=== PATIENT | female | born 1995 | race Two or more races ===

== ENCOUNTER 2018-02-01 20:31 | Emergency (ER) | payer OTHER ==
[~2018-02-01] VITALS: Ht 157.5 cm; Wt 49.9 kg
[~2018-02-01 20:31] MED LIST: IBUPROFEN800 MG PO; ORPH100T PO
== END 2018-02-01 23:22 | disposition home or self-care (01) ==
LOC: ER 20:31
DX: L02.416 Cutaneous abscess of left lower limb (principal); B95.61 Methicillin susceptible Staphylococcus aureus infection as the cause of diseases classified elsewhere

== ENCOUNTER 2018-02-08 10:11 | Outpatient (CLI) | payer OTHER | END 2018-02-08 10:21 | disposition home or self-care (01) | LOC: LAB 10:11 | DX: Z11.3 Encounter for screening for infections with a predominantly sexual mode of transmission (principal); Z13.1 Encounter for screening for diabetes mellitus; E03.8 Other specified hypothyroidism; E78.2 Mixed hyperlipidemia; Z11.4 Encounter for screening for human immunodeficiency virus [HIV] ==

== ENCOUNTER 2018-03-03 14:26 | Outpatient (CLI) | payer OTHER | END 2018-03-03 15:26 | disposition home or self-care (01) | LOC: TOM 14:26 | DX: R51 Headache (principal) ==

== ENCOUNTER 2018-03-13 16:53 | Emergency (ER) | payer OTHER ==
[~2018-03-13] VITALS: Ht 157.5 cm; Wt 51.3 kg
[2018-03-13] MEDS ORDERED: ZOLOFT25 MG (17:03)
[2018-03-13] MEDS ORDERED: VISTARIL50 MG (17:04)
== END 2018-03-13 21:57 | disposition home or self-care (01) ==
LOC: ER 16:53
DX: G43.809 Other migraine, not intractable, without status migrainosus (principal)

== ENCOUNTER 2018-06-06 11:20 | Outpatient (CLI) | payer OTHER ==
[~2018-06-06 11:20] MED LIST changes: +VISTARIL50 MG; +ZOLOFT25 MG
== END 2018-06-06 11:25 | disposition home or self-care (01) ==
LOC: LAB 11:20
DX: J11.2 Influenza due to unidentified influenza virus with gastrointestinal manifestations (principal); N39.0 Urinary tract infection, site not specified; N91.2 Amenorrhea, unspecified; J11.1 Influenza due to unidentified influenza virus with other respiratory manifestations

== ENCOUNTER 2018-09-23 10:45 | Emergency (ER) | payer OTHER ==
[~2018-09-23] VITALS: Ht 157.5 cm; Wt 51.3 kg
== END 2018-09-23 15:07 | disposition home or self-care (01) ==
LOC: ER 10:45
DX: R07.89 Other chest pain (principal); F06.4 Anxiety disorder due to known physiological condition

== ENCOUNTER 2019-04-20 16:41 | Outpatient (CLI) | payer OTHER | END 2019-04-20 16:49 | disposition home or self-care (01) | LOC: LAB 16:41 | DX: J11.1 Influenza due to unidentified influenza virus with other respiratory manifestations (principal); R53.81 Other malaise; J06.9 Acute upper respiratory infection, unspecified; R05 Cough ==

== ENCOUNTER 2019-09-12 15:46 | Outpatient (CLI) | payer OTHER | END 2019-09-12 18:00 | disposition home or self-care (01) | LOC: LAB 15:46 | DX: Z11.3 Encounter for screening for infections with a predominantly sexual mode of transmission (principal); Z13.6 Encounter for screening for cardiovascular disorders; Z00.8 Encounter for other general examination; N92.6 Irregular menstruation, unspecified; Z11.4 Encounter for screening for human immunodeficiency virus [HIV] ==

== ENCOUNTER → 2019-12-10 15:47 | Outpatient (CLI) | payer OTHER | END | disposition home or self-care (01) | LOC: LAB 15:47 | PROVIDERS: ATTEND Internal Medicine | DX: Z32.02 Encounter for pregnancy test, result negative (principal) ==

== ENCOUNTER 2019-12-14 07:00 | Outpatient (CLI) | payer OTHER | END 2019-12-14 15:42 | disposition home or self-care (01) | LOC: PPH VACUNA 07:00 | DX: Z23 Encounter for immunization (principal) ==

== ENCOUNTER 2019-12-14 08:20 | Outpatient (CLI) | payer OTHER | END 2019-12-14 15:00 | disposition home or self-care (01) | LOC: LAB | PROVIDERS: ATTEND Internal Medicine | DX: Z20.828 Contact with and (suspected) exposure to other viral communicable diseases (principal) ==

== ENCOUNTER 2019-12-17 10:51 | Emergency (ER) | payer OTHER ==
[~2019-12-17] VITALS: Ht 157.5 cm; Wt 62.6 kg
== END 2019-12-17 12:47 | disposition home or self-care (01) ==
LOC: ER 10:51
DX: B34.9 Viral infection, unspecified (principal); Z20.828 Contact with and (suspected) exposure to other viral communicable diseases

== ENCOUNTER → 2020-01-17 17:36 | Outpatient (CLI) | payer OTHER | END | disposition home or self-care (01) | LOC: LAB 17:36 | PROVIDERS: ATTEND Internal Medicine | DX: Z11.3 Encounter for screening for infections with a predominantly sexual mode of transmission (principal); Z11.7 Encounter for testing for latent tuberculosis infection ==

== ENCOUNTER → 2020-01-30 16:08 | Outpatient (CLI) | payer OTHER | END | disposition home or self-care (01) | LOC: LAB 16:08 | PROVIDERS: ATTEND Internal Medicine Infectious Disease | DX: Z03.818 Encounter for observation for suspected exposure to other biological agents ruled out (principal) ==

== ENCOUNTER 2020-02-20 18:28 | Emergency (ER) | payer OTHER ==
[~2020-02-20] VITALS: Ht 157.5 cm; Wt 62.6 kg
[2020-02-21] MEDS ORDERED: INTESTINEX680 M2 PO (01:17)
[2020-02-21] MEDS ORDERED: PEPCID20 MG PO (01:17)
== END 2020-02-21 01:33 | disposition home or self-care (01) ==
LOC: ER 18:28
DX: K52.89 Other specified noninfective gastroenteritis and colitis (principal); B34.9 Viral infection, unspecified; Z03.818 Encounter for observation for suspected exposure to other biological agents ruled out

== ENCOUNTER 2020-06-03 14:39 | Emergency (ER) | payer OTHER ==
[~2020-06-03] VITALS: Ht 157.5 cm; Wt 62.6 kg
[~2020-06-03 14:39] MED LIST changes: +INTESTINEX680 M2 PO; +PEPCID20 MG PO
== END 2020-06-03 17:49 | disposition home or self-care (01) ==
LOC: ER 14:39
DX: G44.209 Tension-type headache, unspecified, not intractable (principal)

== ENCOUNTER 2021-01-11 23:54 | Emergency (ER) | payer OTHER ==
[~2021-01-11] VITALS: Ht 157.5 cm; Wt 66.7 kg
[2021-01-12] MEDS ORDERED: ORASEP SPRAY30 ML MM (03:36)
[2021-01-12] MEDS ORDERED: CEPHALEXIN500 MG PO (03:36)
[2021-01-12] MEDS ORDERED: PYRIDIUM DS200 MG PO (03:36)
== END 2021-01-12 03:51 ==
LOC: ER 23:54
DX: J02.9 Acute pharyngitis, unspecified (principal); N30.90 Cystitis, unspecified without hematuria

== ENCOUNTER 2021-01-22 15:40 | Outpatient (CLI) | payer OTHER ==
[~2021-01-22 15:40] MED LIST changes: +CEPHALEXIN500 MG PO; +ORASEP SPRAY30 ML MM; +PYRIDIUM DS200 MG PO
== END 2021-01-22 16:07 | disposition home or self-care (01) ==
LOC: LAB 15:40
DX: Z34.91 Encounter for supervision of normal pregnancy, unspecified, first trimester (principal)

== ENCOUNTER 2021-03-15 14:35 | Emergency (ER) | payer OTHER ==
[~2021-03-15] VITALS: Ht 157.5 cm; Wt 68.0 kg
== END 2021-03-15 19:58 | disposition home or self-care (01) ==
LOC: ER 14:35
DX: B34.9 Viral infection, unspecified (principal)

== ENCOUNTER 2021-03-24 15:07 | Outpatient (CLI) | payer OTHER | END 2021-03-24 15:15 | disposition home or self-care (01) | LOC: LAB 15:07 | PROVIDERS: ATTEND Internal Medicine | DX: U07.1 COVID-19 (principal); N91.0 Primary amenorrhea ==

== ENCOUNTER 2021-09-30 15:48 | Outpatient (CLI) | payer OTHER | END 2021-09-30 15:53 | disposition home or self-care (01) | LOC: LAB 15:48 | PROVIDERS: ATTEND Internal Medicine | DX: Z20.822 Contact with and (suspected) exposure to COVID-19 (principal); N91.1 Secondary amenorrhea; Z32.00 Encounter for pregnancy test, result unknown ==

== ENCOUNTER 2021-12-09 08:00 | Outpatient (CLI) | payer OTHER | END 2021-12-09 08:05 | disposition home or self-care (01) | LOC: PPH VACUNA 08:00 | PROVIDERS: ATTEND Emergency Medicine Pediatric Emergency Medicine | DX: Z23 Encounter for immunization (principal) ==

== ENCOUNTER 2023-02-20 18:16 | Emergency (ER) | payer OTHER ==
[~2023-02-20] VITALS: Ht 157.5 cm; Wt 68.0 kg
[2023-02-20 20:04] LABS: HEMATOCRIT 38.2 % (36.0-45.00); MEAN CELL VOLUME 93.3 fL (80.00-100.00); MEAN CORPUSCULAR HEMOGLOBIN 31.6 pg (27.00-32.0); MEAN CORPUSCULAR HGB CONC 33.9 g/dl (32.0-36.0); PLATELET COUNT 300 K/uL (150-450); RED CELL DISTRIBUTION WIDTH 12.6 % (11.5-14.5)
== END 2023-02-20 21:48 | disposition home or self-care (01) ==
LOC: ER 18:16
PROVIDERS: General Practice
DX: J03.90 Acute tonsillitis, unspecified (principal); Z20.822 Contact with and (suspected) exposure to COVID-19

== ENCOUNTER 2023-12-08 14:34 | Outpatient (CLI) | payer OTHER ==
[2023-12-10 07:10] LABS: HEPATITIS B SURFACE ANTIBODY Reactive (.); HEPATITIS C VIRUS ANTIBODY Non Reactive (Non Reactive)
[2023-12-11 09:05] LABS: chla t Positive (Negative); neiss Negative (Negative)
== END 2023-12-08 14:43 | disposition home or self-care (01) ==
LOC: LAB 14:34
PROVIDERS: ATTEND Internal Medicine
DX: Z20.2 Contact with and (suspected) exposure to infections with a predominantly sexual mode of transmission (principal)

== ENCOUNTER 2023-12-30 03:15 | Outpatient (CLI) | payer OTHER | END 2023-12-30 04:00 | disposition home or self-care (01) | LOC: PPH VACUNA 03:15 | PROVIDERS: ATTEND Emergency Medicine Pediatric Emergency Medicine | DX: Z23 Encounter for immunization (principal) ==

== ENCOUNTER 2024-05-01 15:07 | Emergency (ER) | payer OTHER ==
[~2024-05-01] VITALS: Ht 157.5 cm; Wt 70.3 kg
[2024-05-01 19:01] LABS: HEMATOCRIT 38.3 % (36.0-45.00); HEMOGLOBIN 13.1 g/dL (12.0-15.00); MEAN CELL VOLUME 92.7 fL (80.00-100.00); MEAN CORPUSCULAR HEMOGLOBIN 31.6 pg (27.00-32.0); MEAN CORPUSCULAR HGB CONC 34.1 g/dl (32.0-36.0); PLATELET COUNT 299 K/uL (150-450); RED BLOOD COUNT 4.13 M/uL (4.00-6.00); RED CELL DISTRIBUTION WIDTH 13.1 % (11.5-14.5)
[2024-05-01 19:33] LABS: BILIRUBIN TOTAL 0.52 mg/dL (0.3-1.2); CALCIUM 9.2 mg/dL (8.5-10.1); CREATININE SERUM 0.62 mg/dL (0.55-1.02); GFR 115.46; GLOBULINA 3.8 G/DL (2.4-3.5); POTASSIUM 3.95 mEq/L (3.5-5.1); TOTAL PROTEIN 7.8 gm/dL (6.4-8.2)
[2024-05-01] MEDS ORDERED: IBU600 MG PO (20:32)
== END 2024-05-01 20:38 | disposition home or self-care (01) ==
LOC: ER 15:10
PROVIDERS: Preventive Medicine Public Health & General Preventive Medicine
DX: M94.0 Chondrocostal junction syndrome [Tietze] (principal); E16.1 Other hypoglycemia

== ENCOUNTER 2024-06-19 13:35 | Outpatient (CLI) | payer OTHER ==
[~2024-06-19 13:35] MED LIST changes: +IBU600 MG PO
[2024-06-19 14:17] LABS: HEMATOCRIT 39.7 % (36.0-45.00); HEMOGLOBIN 13.2 g/dL (12.0-15.00); MEAN CELL VOLUME 93.4 fL (80.00-100.00); MEAN CORPUSCULAR HGB CONC 33.2 g/dl (32.0-36.0); PH,URINE 6.5 (5.0-8.0); PLATELET COUNT 261 K/uL (150-450); RED BLOOD COUNT 4.25 M/uL (4.00-6.00); RED CELL DISTRIBUTION WIDTH 12.6 % (11.5-14.5); URINE APPEARANCE Clear; URINE BILIRRUBIN Negative (NEGATIVE); URINE BLOOD Negative; URINE COLOR Yellow; URINE GLUCOSE Negative (NEGATIVE); URINE KETONE Negative (NEGATIVE); URINE LEUKOCYTE Negative; URINE NITRATE Negative; URINE PROTEIN Negative (NEGATIVE); URINE UROBILINOGEN 0.2 E.U./dl
[2024-06-19 14:21] LABS: URINE BACTERIA 97.9 uL (0.0-1933); URINE EPITHELIAL CELLS 4.5 uL (0.0-38.8)
[2024-06-19 14:27] LABS: URINE WBC 1.2 uL (0.0-23.2)
[2024-06-19 15:36] LABS: ALBUMIN 4.1 gm/dL (3.4-5.0); BILIRUBIN TOTAL 0.45 mg/dL (0.3-1.2); CALCIUM 9.2 mg/dL (8.5-10.1); CHOL HDL RATIO 3.2 (0-5.0); CREATININE SERUM 0.76 mg/dL (0.55-1.02); GFR 90.62; GLOBULINA 3.8 G/DL (2.4-3.5); POTASSIUM 3.93 mEq/L (3.5-5.1); TOTAL PROTEIN 7.9 gm/dL (6.4-8.2); TSH 0.889 uIU/mL (0.358-3.74)
[2024-06-21 07:09] LABS: HEPATITIS A ANTIBODY IGG Positive (Negative); HEPATITIS B SURFACE ANTIBODY Reactive (.); HEPATITIS C VIRUS ANTIBODY Non Reactive (Non Reactive)
[2024-06-21 13:06] LABS: chla t Negative (Negative); neiss Negative (Negative)
== END 2024-06-19 13:41 | disposition home or self-care (01) ==
LOC: RAD 13:35
PROVIDERS: ATTEND Internal Medicine
DX: J18.9 Pneumonia, unspecified organism (principal)

== ENCOUNTER 2024-12-07 13:43 | Outpatient (CLI) | payer OTHER ==
[2024-12-11 07:07] LABS: HEPATITIS B SURFACE ANTIBODY Reactive (.); HEPATITIS C VIRUS ANTIBODY Non Reactive (Non Reactive); HSV I IGG TYPE SPECIFIC Non Reactive (Non Reactive)
[2024-12-11 21:11] LABS: chla t Negative (Negative); neiss Negative (Negative)
== END 2024-12-07 13:49 | disposition home or self-care (01) ==
LOC: LAB 13:43
PROVIDERS: ATTEND Internal Medicine
DX: Z20.2 Contact with and (suspected) exposure to infections with a predominantly sexual mode of transmission (principal)

== ENCOUNTER 2024-12-26 14:31 | Outpatient (CLI) | payer OTHER ==
[2024-12-26 15:07] LABS: URINE APPEARANCE Clear; URINE BILIRRUBIN Negative (NEGATIVE); URINE BLOOD Negative; URINE COLOR Yellow; URINE GLUCOSE Negative (NEGATIVE); URINE KETONE Trace (NEGATIVE); URINE LEUKOCYTE Trace; URINE NITRATE Negative; URINE PROTEIN 30 (NEGATIVE); URINE UROBILINOGEN 1.0 E.U./dl
[2024-12-26 15:08] LABS: URINE BACTERIA 178.7 uL (0.0-1933); URINE CAST 4.54 uL (0.0-1.40); URINE EPITHELIAL CELLS 23.8 uL (0.0-38.8); URINE RBC 22.1 uL (0.0-20.8); URINE WBC 15.0 uL (0.0-23.2)
[2024-12-26 15:08] LABS: BASO % 0.4 % (0.1-1.2); EOS # 0.05 (0.04-0.54); EOS % 0.6 % (0.7-7.0); LYMPH # 1.55 (1.18-3.74); LYMPH % 17.3 % (19.3-53.1); MEAN PLATELET VOLUME 10.70 fl (9.4-12.4); MONO # 0.60 (0.24-0.82); MONO % 6.7 % (4.7-12.5); NEUT # 6.70 (1.56-6.13); NEUT % 74.6 % (34.0-71.1); RED CELL DISTRIBUTION WIDTH 11.9 % (11.6-14.4)
[2024-12-26 15:56] LABS: ALT/SGPT 17.0 U/L (12-78); AST/SGOT 11.0 U/L (15-37); BILIRUBIN TOTAL 0.57 mg/dL (0.3-1.2); BUN CREA RATIO 17.0 (7.0-25.0); CREATININE SERUM 0.72 mg/dL (0.55-1.02); GFR 96.45; GLOBULINA 3.9 G/DL (2.4-3.5); GLUCOSE FASTING 93.0 mg/dL (65-100); OSMOLALITY SERUM 279.0 MOSM/KG (275-295)
== END 2024-12-26 14:32 | disposition home or self-care (01) ==
LOC: LAB 14:31
PROVIDERS: ATTEND Internal Medicine Cardiovascular Disease
DX: I10 Essential (primary) hypertension (principal); E11.9 Type 2 diabetes mellitus without complications; Z33.1 Pregnant state, incidental; E03.8 Other specified hypothyroidism; N39.0 Urinary tract infection, site not specified; Z78.1 Physical restraint status

== ENCOUNTER 2024-12-27 14:08 | Outpatient (CLI) | payer OTHER | END 2024-12-27 14:14 | disposition home or self-care (01) | LOC: SONOGRAMA 14:08 | PROVIDERS: ATTEND Internal Medicine Cardiovascular Disease | DX: N92.1 Excessive and frequent menstruation with irregular cycle (principal) ==

== ENCOUNTER 2025-01-17 14:15 | Outpatient (CLI) | payer OTHER | END 2025-01-17 14:25 | disposition home or self-care (01) | LOC: PPH VACUNA 14:15 | PROVIDERS: ATTEND Emergency Medicine Pediatric Emergency Medicine | DX: Z23 Encounter for immunization (principal) ==